=== PATIENT | female | born 2005 | race Hispanic/Latino ===

== ENCOUNTER 2025-04-09 18:41 | Emergency (ER) | payer SELFPAY ==
[2025-04-09 18:43] VITALS: BP 133/84
[2025-04-09 19:00] LABS: Hematocrit 36.3 % (37.0-47.0); Hemoglobin 12.1 g/dL (12.0-16.0); Mean Corp Hgb Conc. 33.3 g/dL (33.0-37.0); Mean Corpuscular Volume 89.4 fL (81.0-99.0); Nucleated Red Blood Cells % 0 %; Platelet Count 226 10^3/uL (130-400); Red Cell Dist. Width 13.2 % (11.5-14.5)
[2025-04-09 19:13] LABS: HCG, Serum Qualitative Screen Negative
[2025-04-09 19:17] LABS: ALT (SGPT) 52 U/L (0-35); AST (SGOT) 99 U/L (14-36); Albumin 4.9 g/dl (3.5-5.0); Alkaline Phosphatase 61 U/L (38-126); Blood Urea Nitrogen 17 mg/dl (7-17); Calcium 10.0 mg/dl (8.4-10.2); Carbon Dioxide 30 mmol/L (22-30); Chloride 103 mmol/L (98-107); Glucose 92 mg/dl (70-99); Potassium 4.2 mmol/L (3.5-5.1); Sodium 140 mmol/L (135-145); Total Protein 7.5 g/dl (6.3-8.2); eGFR > 60.00
[2025-04-09 21:19] VITALS: BP 116/74
--- NOTE | 2025-04-09 23:33 | ED.GENMED ---
History of Present Illness
General
Chief Complaint: Vaginal Bleeding
Source: patient
Time Seen by Provider: 04/09/25 22:41
Nursing documentation reviewed up to this point in time: agreed with
History of Present Illness
History of Present Illness:
Note:
CHIEF COMPLAINT(S)
Heavy menstrual bleeding for approximately one month and two weeks.
HISTORY OF PRESENT ILLNESS
The patient is a 20-year-old female presenting with heavy menstrual bleeding lasting for one month and two weeks. She describes that the bleeding varies in intensity, with some days having 'really, really too much blood,' and other days a more
normal flow. The patient last experienced a regular menstrual period on December 09 and did not have periods in December or January. Her current bleeding began on February 28. The patient has taken three tests, all of which were negative. She reports no
changes in medications and has not been on control; however, she did take a Plan B pill on December 01. Additionally, she experiences occasional pelvic pain, but none at the present time.
MEDICATIONS
The patient has not reported any current medications.
REVIEW OF SYSTEMS
- Genitourinary: Heavy menstrual bleeding for one month and two weeks, occasional pelvic pain.
PHYSICAL EXAM
General: Alert, no acute distress.
Skin: Warm, dry.
Head: Normocephalic, atraumatic.
Neck: Supple, trachea midline.
Eye Ears, nose, mouth and throat: Oral mucosa moist.
Cardiovascular: Normal peripheral perfusion, No edema.
Respiratory: Respirations are non-labored.
Gastrointestinal : Abdomen nondistended
Back: Normal range of motion, Normal alignment.
Musculoskeletal: Normal ROM, normal strength.
Neurological: Alert and oriented to person, place, time, and situation, No focal neurological deficit observed.
Psychiatric: Cooperative, appropriate mood & affect.
PLAN
An ultrasound will be conducted to assess the cause of the bleeding. The patient will need to consume water to ensure a full bladder for the ultrasound examination.
DIFFERENTIAL DIAGNOSIS
The Differential Diagnosis includes, in no particular order and is not limited to:
- Dysfunctional Uterine Bleeding
- Uterine Fibroids
- Endometrial Hyperplasia
- Polycystic Ovarian Syndrome
- Coagulation disorders
- Hormonal Imbalance
- Endometrial Polyps
- Thyroid Dysfunction
- Pelvic Inflammatory Disease
- Perimenopause
CARE-UPDATE
04/09/25 - 23:33
Patient declined to proceed with the ultrasound and opted to leave against medical advice. She expressed a preference not to wait for the ultrasound results.
Disposition:
SUMMARY OF ENCOUNTER
The patient is a 20-year-old female presenting with abnormal uterine bleeding for the past six weeks. She has experienced heavy menstrual bleeding with some days of excessive bleeding and other days more manageable. Although an ultrasound was
scheduled to evaluate the cause of the bleeding, the patient opted not to proceed with the procedure and decided to leave the emergency department. She indicated a desire not to wait due to her fathers need to return to work and declined any further
immediate evaluation.
DISPOSITION
Left Against Medical Advice (AMA).
PLAN
The patient was advised to follow up with chief general pediatric clinic Dr. Marshall for further evaluation and management of her abnormal uterine bleeding.
PATIENT EDUCATION AND COUNSELING
The patient received instructions on the importance of follow-up with a chief general pediatric clinic for her condition. Strict njitox-cz-lhpcycckm-room instructions were given in case her symptoms worsen or new symptoms develop.
FOLLOW-UP INSTRUCTIONS
The patient was instructed to follow up with Dr. Marshall in gynecology.
MEDICAL DECISION MAKING
-Complexity of Data Reviewed:
Chronic conditions affecting care includes: Abnormal uterine bleeding.
-DDx list:
Dysfunctional Uterine Bleeding, Uterine Fibroids, Endometrial Hyperplasia, Polycystic Ovarian Syndrome, Coagulation disorders, Hormonal Imbalance, Endometrial Polyps, Thyroid Dysfunction, Pelvic Inflammatory Disease, Perimenopause.
DATA
Category 1:
The patient was considered for ultrasound imaging to investigate the cause of her bleeding but ultimately decided not to undergo the procedure.
RISK
Care significantly affected by Social Determinants of Health: The patients decision to leave was influenced by the social factor of her father needing to return to work.
DIAGNOSIS
- Abnormal uterine bleeding (N93.9)
- Dysfunctional uterine bleeding (N92.6)
Phy Exam
Physical Exam
Physical Exam:
.
Course
Orders/Labs/Results
Orders:
Orders
04/09/25 18:44
Test Result ONCE
04/09/25 18:54
Complete Blood Count/With Diff Urgent
Comprehensive Metabolic Panel Urgent
HCG, Serum Qualitative Screen Urgent
04/09/25 23:08
US Pelvis Only (non-obstetric) Urgent
Comment:
Reason For Exam: dub
Abnormal Lab Results
04/09/25
18:54
RBC 4.06 L 10^6/uL
(4.20-5.40)
Hct 36.3 L %
(37.0-47.0)
MPV 10.6 H fL
(7.4-10.4)
AST 99 H U/L
(14-36)
ALT 52 H U/L
(0-35)
04/09/25 18:54
04/09/25 18:54
Vital Signs
Initial and Last Documented VS:
Initial Vital Signs
Temp Pulse Resp BP Pulse Ox
97.8 F 83 16 133/84 99
04/09/25 18:43 04/09/25 18:43 04/09/25 18:43 04/09/25 18:43 04/09/25 18:43
Last Documented Vital Signs
Temp Pulse Resp BP Pulse Ox
98.0 F 87 18 116/74 98
04/09/25 21:19 04/09/25 21:19 04/09/25 21:19 04/09/25 21:19 04/09/25 23:37
*Radiology
Radiology exam reviewed: other (Pt refused Pelvic US procedure.)
*Pulse Oximetry
SaO2: 98
Oxygen Mode of Delivery: Room air
Patient hypoxic: no
*Critical Care Note
Total Time (30-74mins, 75-104mins- exclusive of procedures): Not Applicable
ED Attending Note
-
Portions of this chart may have been created with voice recognition software.� Occasional wrong word or��sound alike� substitutions may have occurred due to the inherent limitations of voice recognition software.
Discharge Plan
Departure
Patient Disposition: Home (Routine Discharge)
Date of Disposition: 04/09/25
Time of Disposition: 23:37
Patient with high blood pressure during this ER visit?: No
Condition: Fair
Discharge Problem:
DUB (dysfunctional uterine bleeding)
Instructions: Bleeding between periods
Referrals:
Lore Marshall MD [Active, Gynecology] - Next open appointment
NONE,* [Family Provider, Internal Medicine]
Activity Restrictions/Additional Instructions:
Please follow up with Gynecology as soon as possible. You refused an Ultrasound today. This test is important in diagnosing pelvic problems. If you develop any change in synmptoms, please return to the ER.
Thank You for choosing [facility].
It was a pleasure meeting you and taking part in your care. We hope for your continued healing and wellness.
Please read discharge instructions in their entirety. However, they are for general education and may not describe your exact diagnosis at discharge. Information on your ER visit and medical conditions were discussed with you along with appropriate
follow up information...
If indicated, please take your medications as instructed and indicated on discharge paperwork.
Please schedule a follow up appointment as directed. Call to schedule an appointment
Please return to the emergency department with ANY change in, persisting, or worsening of symptoms. If any of your symptoms do not improve, or persist, or become more severe within 6-12 hours, please return to the emergency department for further
care.
Please return to the emergency department if you develop a headache, neck pain/stiffness, fever greater than 100.4F, chest pain, shortness of breath, persistent nausea, vomiting, slurred speech, difficulty walking, numbness/tingling, weakness, signs
of infection or any other symptoms that are worrisome to you.
If you have any questions or concerns please do not hesitate to call the Hospital at
Interventions
Interventions:
*Risk Screen - Suicide Last Done: 04/09/25 18:45
*General Assessment Last Done: 04/09/25 21:21
*Neglect/Abuse Screening Last Done: 04/09/25 18:45
*ED- Fall Risk Assessment Last Done: 04/09/25 21:20
ED-Female Genitourinary Assessment Last Done: 04/09/25 21:22
Discharge Date and Time
Print Language: MONGOLIAN
== END 2025-04-09 23:40 | disposition left against medical advice (07) ==
LOC: EMR 18:41
PROVIDERS: Emergency Medicine; EMERGENCY PHYSICIAN Student in an Organized Health Care Education/Training Program
DX: N93.8 Other specified abnormal uterine and vaginal bleeding (principal)
CPT/HCPCS: 99284; 76856; 80053; 84703; 85025